=== PATIENT | female | born 1965 | race Caucasian/White ===

== ENCOUNTER 2021-03-26 08:32 | Emergency (ER) | payer OTHER ==
[~2021-03-26] VITALS: Ht 157.5 cm; Wt 72.7 kg
[2021-03-26 08:36] VITALS: BP 148/80
[2021-03-26] MEDS ORDERED: ACETAMINOPHEN 500 MG TABLET PO ONE (08:45)
[2021-03-26 09:13] LABS: COVID AG,FIA SOURCE NASOPHARYNGEAL
== END 2021-03-26 10:52 | disposition home or self-care (01) ==
LOC: EMS 08:40
DX: J02.9 Acute pharyngitis, unspecified (principal); Z20.822 Contact with and (suspected) exposure to COVID-19
CPT/HCPCS: 87426; 99283; U0003